=== PATIENT | female | born 1955 | race Asian ===

== ENCOUNTER 2021-10-05 10:36 | Emergency (ER) | payer MEDICARE ==
[~2021-10-05] VITALS: Ht 152.4 cm; Wt 57.6 kg
--- NOTE | 2021-10-05 10:36 | NUR ---
PT BIB SELF C/O ELEVATED BP 170 SYSTOLIC FOR PAST COUPLE DAYS. PT IS AAOXS4, NOT IN RESPIRATORY DISTRESS, HOOKED TO V/S STABLE, KEPT RESTED AND COMFORTABLE. WILL CONTINUE TO MONITOR.
--- NOTE | 2021-10-05 10:51 | NUR ---
Note [email or web address] in EDM - 10/05/21 at 1117 by DORENE BIB C/O ELEVATED BP FOR PAST COUPLE DAYS. ANXIOUS. TOOK LISINOPRIL THIS AM. TO ER BED 12, HOOKED TO MONITOR, CHANGED TO HOSP GOWN, WARM BLANKET PROVIDED. BREATHING EVEN AND UNLABORED. AWAITING MD OAKLEY
--- NOTE | 2021-10-05 11:08 | NUR ---
DR ROWE AT BEDSIDE FOR EVAL
--- NOTE | 2021-10-05 11:35 | NUR ---
Patient discharged to home in stable condition. Written and verbal after care instructions given. Patient verbalizes understanding of instruction.
[2021-10-05 11:36] VITALS: BP 138/58
== END 2021-10-05 11:36 | disposition home or self-care (01) ==
LOC: ER 10:42
DX: R03.0 Elevated blood-pressure reading, without diagnosis of hypertension (principal); F06.4 Anxiety disorder due to known physiological condition; Z88.2 Allergy status to sulfonamides

== ENCOUNTER 2022-04-16 05:14 | Emergency (ER) | payer BC, MEDICARE ==
[~2022-04-16] VITALS: Ht 157.5 cm; Wt 56.7 kg
--- NOTE | 2022-04-16 05:30 | NUR ---
TO ER BED 3. BIBS C/O SOB AND HIGH HEART RATE. PT WAS SEEN AT [facility] AND ALBUTEROL WAS GIVEN. PT IS ALERT AND ORIENTED. RR EVEN AND NON LABORED. CONNECTED TO MONITOR. O2 SAT 98% ROOM AIR. AWAITING MD OAKLEY
[2022-04-16] MEDS ORDERED: predniSONE 20 MG TABLET ONE (05:39)
[2022-04-16] MEDS ORDERED: ALBUTEROL FS 2.5 MG/3 ML VIAL.NEB ONE (05:41)
[2022-04-16] MEDS ORDERED: IPRATROPIUM NEB FS 0.5 MG/2.5 ML AMPUL.NEB ONE (05:41)
[2022-04-16] MEDS ORDERED: PRED20TA PO (05:41)
--- NOTE | 2022-04-16 05:45 | NUR ---
RT AT BEDSIDE
[2022-04-16] MEDS ORDERED: ALBUTEROL FS 2.5 MG/3 ML VIAL.NEB NEB ONE (06:00)
[2022-04-16] MEDS ORDERED: IPRATROPIUM NEB FS 0.5 MG/2.5 ML AMPUL.NEB NEB ONE (06:00)
[2022-04-16] MEDS ORDERED: predniSONE 20 MG TABLET PO ONE (06:00)
[2022-04-16 07:23] VITALS: BP 143/94
== END 2022-04-16 07:24 | disposition home or self-care (01) ==
LOC: ER 05:16
DX: J98.01 Acute bronchospasm (principal); Z88.2 Allergy status to sulfonamides

== ENCOUNTER 2022-08-28 11:43 | Emergency (ER) | payer MEDICARE, BC ==
[~2022-08-28] VITALS: Ht 157.5 cm; Wt 54.4 kg
--- NOTE | 2022-08-28 12:23 | NUR ---
PT A/O X4 COMPLAINING FO CHEST PALPITATIONS NO PAIN REPORTED. PHELBOTOMIST AT [facility] FOR BLOOD DRAW.
--- NOTE | 2022-08-28 12:36 | NUR ---
ESTABLISHED IV ACCESS 22G RIGHT HAND. BLOOD DRAWN AND SENT TO LAB.
--- NOTE | 2022-08-28 12:37 | NUR ---
COVID SWAB COLLECTED AND SENT TO LAB
[2022-08-28 13:01] LABS: BASOPHILS % (AUTO) 0.6 % (0.0-2.0); EOSINOPHILS % (AUTO) 0.6 % (0.0-6.0); HEMATOCRIT 26 % (33-45); HEMOGLOBIN 8.8 g/dL (11.5-14.8); LYMPHOCYTES # (AUTO) 2.3 K/uL (0.8-4.8); LYMPHOCYTES % (AUTO) 35.7 % (20.0-44.0); MEAN CORPUSCULAR HGB CONC 33 g/dl (31.0-36.0); MEAN CORPUSCULAR VOLUME 96 fL (82-100); MONOCYTES # (AUTO) 0.3 K/uL (0.1-1.30); MONOCYTES % (AUTO) 4.8 % (2.0-12.0); NEUTROPHILS # (AUTO) 3.7 K/uL (1.8-8.9); NEUTROPHILS % (AUTO) 58.3 % (43.0-81.0); PLATELET COUNT (AUTO) 252 K/uL (150-450); RED BLOOD CELL COUNT(AUTO) 2.74 MIL/uL (4.0-5.2); WHITE BLOOD COUNT (AUTO) 6.4 K/uL (4.3-11.0)
[2022-08-28 13:19] LABS: CALCIUM, SERUM 8.7 mg/dL (8.5-10.1); CARBON DIOXIDE 24 mmol/L (21-32); CHLORIDE 100 mmol/L (98-107); CREATININE 1.6 mg/dL (0.6-1.3); GLUCOSE 171 mg/dL (74-106); POTASSIUM 3.6 mmol/L (3.5-5.1); SODIUM SERUM 135 mmol/L (136-145); UREA NITROGEN, BLOOD 24 mg/dL (7-18)
[2022-08-28] MEDS ORDERED: IV NS 0.9% 1,000 ML IV ONE (14:00)
--- NOTE | 2022-08-28 14:13 | NUR ---
PATIENT REFUSED FLUIDS
[2022-08-28 14:25] VITALS: BP 128/86
--- NOTE | 2022-08-28 14:25 | NUR ---
Patient discharged to home in stable condition, ambulating by self. Written and verbal after care instructions given. Patient verbalizes understanding of instruction.
== END 2022-08-28 14:27 | disposition home or self-care (01) ==
LOC: ER 11:46
DX: R00.2 Palpitations (principal); E86.0 Dehydration; N28.9 Disorder of kidney and ureter, unspecified; D64.9 Anemia, unspecified; Z88.2 Allergy status to sulfonamides; R03.0 Elevated blood-pressure reading, without diagnosis of hypertension
CPT/HCPCS: 36415; 71045-TC; 80048-TC; 83880; 84484-TC; 85025-TC; C9803; J7030